=== PATIENT | male | born 1945 | race Caucasian/White ===

== ENCOUNTER 2017-07-30 15:58 | Emergency (ER) | payer OTHER ==
[2017-07-30 16:05] VITALS: BP 150/82
--- NOTE | 2017-07-30 16:15 | UC ---
Truncal Trauma HPI - HPI Summary HPI Summary: WAS CROSSING THE STREET TODAY WHEN HE TRIPPED ON THE CURB AND LANDED ON HIS LEFT SIDE. HAS HAD PROGRESSIVE LEFT RIB PAIN SINCE THEN. NO SOB, CP, ARM PAIN. PAIN NOT WORSE WITH DEEP BREATHS, COUGH OR SNEEZE. WORSE WITH MOVEMENT. - History Of Current Complaint Chief Complaint: UCUpperExtremity Stated Complaint: RIB INJURY Time Seen by Provider: 07/30/17 15:59 Hx Obtained From: Patient Onset/Duration: Sudden Onset, Lasting Hours, Still Present Onset Of Pain: Immediate Severity Initially: Moderate Severity Currently: Moderate Pain Intensity: 5 Pain Scale Used: 0-10 Numeric Mechanism Of Injury: Fall From A Standing Position Aggravating Factor(s): Movement Alleviating factor(s): Rest Associated Signs And Symptoms: Negative: SOB, Chest Pain, Cough, Hematuria, Fever, Nausea - Allergies/Home Medications Allergies/Adverse Reactions: Allergies Allergy/AdvReac Type Severity Reaction Status Date / Time No Known Allergies Allergy Verified 07/28/16 15:26 PMH/Surg Hx/FS Hx/Imm Hx Previously Healthy: Yes - Surgical History Surgical History: Yes Surgery Procedure, Year, and Place: TONSILS AT 9 YRS OLD; PRECANCEROUS SKIN BX; - Family History Known Family History: Negative: Hypertension - Social History Alcohol Use: Daily Substance Use Type: None Smoking Status (MU): Never Smoked Tobacco Review of Systems Constitutional: Negative Skin: Negative Respiratory: Negative Cardiovascular: Negative Gastrointestinal: Negative Musculoskeletal: Arthralgia, Myalgia All Other Systems Reviewed And Are Negative: Yes Physical Exam Triage Information Reviewed: Yes Appearance: Well-Appearing, No Pain Distress, Well-Nourished Vital Signs: Initial Vital Signs Temp 98.9 F 07/30/17 16:01 Pulse 74 07/30/17 16:01 Resp 18 07/30/17 16:01 BP 150/82 07/30/17 16:01 Vital Signs Reviewed: Yes Eyes: Positive: Conjunctiva Clear ENT: Positive: Hearing grossly normal Neck: Positive: Supple Respiratory: Positive: Lungs clear, Normal breath sounds, No respiratory distress, No accessory muscle use Cardiovascular Exam: Normal Abdomen Description: Positive: Soft Musculoskeletal: Positive: No Edema, Other: - POINT TENDERNESS LEFT RIBS MID AXILLARY LINE Neurological: Positive: Alert Psychological: Positive: Age Appropriate Behavior Skin: Negative: rashes Diagnostics - Radiology LEFT RIB XRAYS Xray Interpretation: Positive (See Comments) - 1. No radiographically apparent displaced rib fracture or pneumothorax. 2. Questionable faint density overlying the lower left lung which potentially could be contusion in the setting of recent trauma. Radiology Interpretation Completed By: Radiologist [place] Trauma Course/Dx - Differential Dx/Diagnosis Provider Diagnoses: PULMONARY CONTUSION Discharge - Discharge Plan Condition: Stable Disposition: HOME Patient Education Materials: Pulmonary Contusion (ED) Referrals: Carolyne Garcia MD [Primary Care Provider] - Additional Instructions: XRAY TODAY NEGATIVE FOR FRACTURE OR DISLOCATION. POSSIBLE PULMONARY CONTUSION LEFT LUNG BASE. Pulmonary contusion Pulmonary contusion is a common consequence of blunt chest trauma. Pulmonary contusions generally develop over the first 24 hours and resolve in about one week. BE SURE TO TAKE DEEP BREATHS AND COUGH TO HELP KEEP YOUR LUNGS EXPANDED. SEEK FOLLOW-UP WITH YOUR PCP IF YOU ARE NOT IMPROVING EXPECTED. GO TO THE ER WITHOUT FAIL IF YOU DEVELOP CHEST PAIN, SHORTNESS OF BREATH, BLOODY SPUTUM, NAUSEA, FEVER OR ANY OTHER CONCERNING SYMPTOMS. CONSIDER REPEAT CHEST XRAY IN 2 MONTHS OR SO AFTER RESOLUTION OF SYMPTOMS TO ENSURE IT IS CLEAR.
--- NOTE | 2017-07-30 16:54 | RAD ---
INDICATION: Left rib pain after a fall COMPARISON: None. TECHNIQUE: 5 views of the left ribs were obtained. FINDINGS: A metallic marker is noted overlying the lateral lower left ribs. No fracture or significant focal osseous abnormality is seen. No pneumothorax is apparent. There is questionable density overlying the left lung base. The lungs are otherwise clear. There is no pneumothorax. IMPRESSION: 1. No radiographically apparent displaced rib fracture or pneumothorax. 2. Questionable faint density overlying the lower left lung which potentially could be contusion in the setting of recent trauma. If the patient's symptoms persist, follow-up imaging is recommended.
== END 2017-07-30 17:27 | disposition home or self-care (01) ==
LOC: UCEAST 15:58
DX: S27.321A Contusion of lung, unilateral, initial encounter (principal); W18.09XA Striking against other object with subsequent fall, initial encounter; Y93.01 Activity, walking, marching and hiking; Y92.410 Unspecified street and highway as the place of occurrence of the external cause; Y99.9 Unspecified external cause status
CPT/HCPCS: 99211; G0463

== ENCOUNTER 2018-12-03 09:15 | Emergency (ER) | payer MEDICARE, OTHER ==
[2018-12-03 09:56] VITALS: BP 139/82
--- NOTE | 2018-12-03 10:22 | UC ---
Throat Pain/Nasal Ángel HPI - HPI Summary HPI Summary: 73-year-old male comes in with a chief complaint of upper respiratory tract infection symptoms for 10-11 days. Started with a runny nose sore throat cough chest congestion. He's been noticing sputum that's yellow and green in color. The chest congestion is actually worsening. He's been hearing some wheezing with expiration. No pedal edema no calf pain. - History of Current Complaint Chief Complaint: UCRespiratory Stated Complaint: COUGH Time Seen by Provider: 12/03/18 09:55 Pain Intensity: 0 - Allergies/Home Medications Allergies/Adverse Reactions: Allergies Allergy/AdvReac Type Severity Reaction Status Date / Time No Known Allergies Allergy Verified 07/28/16 15:26 Home Medications: Home Medications Ciclopirox [Ciclopirox Nail Lacquer] 8 % EX BID 12/03/18 [History Confirmed ] PMH/Surg Hx/FS Hx/Imm Hx Previously Healthy: Yes - Surgical History Surgical History: Yes Surgery Procedure, Year, and Place: TONSILS AT 9 YRS OLD; PRECANCEROUS SKIN BX; - Family History Known Family History: Negative: Hypertension - Social History Alcohol Use: Daily Substance Use Type: None Smoking Status (MU): Never Smoked Tobacco Review of Systems All Other Systems Reviewed And Are Negative: Yes Constitutional: Positive: Negative Skin: Positive: Negative Eyes: Positive: Negative ENT: Positive: Nasal Discharge, Sinus Congestion Respiratory: Positive: Shortness Of Breath, Cough, Other - WHEEZING Cardiovascular: Positive: Negative Gastrointestinal: Positive: Negative Motor: Positive: Negative Neurovascular: Positive: Negative Musculoskeletal: Positive: Negative. Negative: Calf Tenderness Neurological: Positive: Negative Psychological: Positive: Negative Is Patient Immunocompromised?: No Physical Exam Triage Information Reviewed: Yes Appearance: Well-Appearing, No Pain Distress, Well-Nourished Vital Signs: Initial Vital Signs Temp 97.9 F 12/03/18 09:52 Pulse 87 12/03/18 09:52 Resp 18 12/03/18 09:52 BP 139/82 12/03/18 09:52 Pulse Ox 98 12/03/18 09:52 Vital Signs Reviewed: Yes Eye Exam: Normal Eyes: Positive: Conjunctiva Clear ENT: Positive: Pharyngeal erythema, Nasal congestion, Nasal drainage, TMs normal Neck exam: Normal Neck: Positive: Supple Respiratory: Positive: No respiratory distress, No accessory muscle use, Wheezing Cardiovascular: Positive: RRR Musculoskeletal Exam: Normal Musculoskeletal: Positive: Strength Intact, ROM Intact, No Edema, Other: - NO CALF TENDERNESS Neurological Exam: Normal Neurological: Positive: Alert, Muscle Tone Normal Psychological Exam: Normal Psychological: Positive: Age Appropriate Behavior Skin Exam: Normal Throat Pain/Nasal Course/Dx - Differential Dx/Diagnosis Provider Diagnosis: Bronchitis with bronchospasm Discharge - Sign-Out/Discharge Documenting (check all that apply): Patient Departure All imaging exams completed and their final reports reviewed: No Studies - Discharge Plan Condition: Stable Disposition: HOME Prescriptions: Albuterol HFA INHALER* [Ventolin HFA Inhaler*] 2 puff INH Q4H PRN #1 mdi PRN Reason: Wheezing Azithromyxin PATRICE (NF) [Z-Patrice (Zithromax) 250 mg tabs #6] 2 tab PO .TODAY, THEN 1 DAILY #6 tab Patient Education Materials: Acute Bronchitis (ED), Bronchospasm (ED) Referrals: Carolyne Garcia MD [Primary Care Provider] - Additional Instructions: FOLLOW UP WITH YOUR DOCTOR IF NOT COMPLETELY IMPROVED. GET RECHECKED FOR ANY WORSENING OF YOUR CONDITION OR QUESTIONS OR CONCERNS. - Billing Disposition and Condition Condition: STABLE Disposition: Home
== END 2018-12-03 10:30 | disposition home or self-care (01) ==
LOC: UCEAST 09:15
DX: J40 Bronchitis, not specified as acute or chronic (principal); J98.01 Acute bronchospasm
CPT/HCPCS: 99212; G0463